=== PATIENT | male | born 1950 | race Caucasian/White ===

== ENCOUNTER 2016-09-17 18:58 | Emergency (ER) | payer MEDICARE ==
[2016-09-17] MEDS ORDERED: TUSSIONEX PENNKINETIC SUSP 5 ML UDC ONE (20:11)
[2016-09-17] MEDS ORDERED: OSELTAMIVIR PHOSPHATE 75 MG PO ONE (20:11)
--- NOTE | 2016-09-17 20:32 | ER NURSING DOCUMENTATION ---
Nurse's Notes [facility] Name:Wesley Ramirez Age:66 yrs Sex:Male :1950 Arrival Date:09/17/2016 Time:18:58 Bed4 Private MD:Elgin Arthur Diagnosis:Influenza Presentation: 09/17 19:15 Notified ED Physician of patient's arrival and CC. rs 19:16 Presenting complaint: Patient states: "Have the flu". Transition of care: patient was rs not received from another setting of care. 19:16 Acuity: JOEL 4 rs 19:16 Method Of Arrival: Private Vehicle rs Triage Assessment: 19:38 General: Appears in no apparent distress, comfortable, Behavior is cooperative, rs pleasant. Pain: Complains of pain in skin all over aches. Neuro: No deficits noted. Level of Consciousness is awake, alert, Oriented to person, place, time, event. Cardiovascular: No deficits noted. Capillary refill < 3 seconds Pulses are 3+ in right radial artery. Respiratory: Respiratory effort is even, unlabored, Respiratory pattern is regular, symmetrical, Breath sounds are clear bilaterally. Derm: No deficits noted. Skin is pink, warm & dry. Historical: - Allergies: PENICILLINS; Aspirin; Lamisil; many foods; - Home Meds: 1. Norvasc Oral 2. Coreg Oral 3. oxygen at noc 4. cpap 5. Shannen Oral 6. Flonase Nasal 7. levothyroxine oral 8. Lisinopril Oral 9. singular 10. Naprosyn Oral 11. Zantac Oral - PMHx: Hypertension; Diabetes - NIDDM; - Tetanus: < 10 years. - Ebola Screening: : Patient negative for fever greater than or equal to 101.5 degrees Fahrenheit, and additional compatible Ebola Virus Disease symptoms. Patient denies exposure to infectious person. Patient denies travel to an Ebola-affected area in the 21 days before illness onset. No symptoms or risks identified at this time. . - Immunization history: Pneumococcal vaccine is up to date, Flu Vaccine < 1 year. - Social history: Smoking status: Patient states was never smoker of tobacco. Patient/guardian denies using alcohol. Screenin:29 Infectious Disease Risk None. Abuse screen: Denies threats or abuse. Nutritional rs screening: No deficits noted. Assessment: 20:29 See Triage Assessment done by same RN. rs Vital Signs: 19:19 BP 174 / 83; Pulse 84; Resp 16; Temp 101.6; Pulse Ox 91% ; Weight 104.33 kg; Height 6 jt ft. 0 in. (182.88 cm); Pain 0/10; 19:19 Body Mass Index 31.19 (104.33 kg, 182.88 cm) jt ED Course: 18:59 Patient arrived in ED. jt 18:59 Elgin Arthur DO is Private Physician. jt 19:17 Triage completed. rs 19:20 Patient has correct armband on for positive identification. Placed in gown. Bed in low rs position. Call light in reach. Side rails up X 1. Adult w/ patient. Pulse Ox - RN Monitoring Only. Door closed. Noise minimized. 19:23 Yomi Johnson MD is Attending Physician. sc 19:39 Notified ED Physician. rs 20:08 Elgin Arthur DO is Referral Physician. sc Administered Medications: 20:04 Drug: Tamiflu 75 mg; Route: PO; sc 21:31 Follow up: Response: Dispensed at discharge. rs 20:04 Drug: Tussionex - HYDROcodone-Homatropine Liquid 5ml 5 ml; Route: PO; sc 21:30 Follow up: Response: Pharmacy closed - take home med pack; Dispensed at discharge. rs Outcome: 20:08 Discharge ordered by . sc 20:30 Discharged to home rs 20:30 Condition: stable 20:30 Discharge instructions given to patient, family, Instructed on discharge instructions, follow up and referral plans. medication usage, Demonstrated understanding of instructions, medications, Prescriptions given X 2. 20:31 Patient left the ED. rs Signatures: Ritu Plata RN RN rs Yomi Johnson MD MD al Vianey Velasquez
--- NOTE | 2016-09-17 20:32 | ER PHYSICIAN DOCUMENTATION ---
Physician Documentation [facility] Name:Wesley Ramirez Age:66 yrs Sex:Male :1950 Arrival Date:09/17/2016 Time:18:58 Bed4 Private MD:Elgin Arthur ED, Scott Disposition: 09/17/16 20:08 Discharged to Home/Self Care. Impression: Influenza. - Condition is Good. - Discharge Instructions: INFLUENZA (Adult). - Prescriptions for Tamiflu 75 mg Oral - take 1 capsule by ORAL route every 12 hours for 5 days; 20 capsule. Tussionex Pennkinetic ER 8- 10 mg/5 mL Oral Suspension, Sust. Release 12 hr - take 5 milliliter by ORAL route every 12 hours As needed; 120 milliliter. - Medical Reconciliation form form. - Follow up: Elgin Arthur DO; When: 2 - 3 days; Reason: Worsening of condition. - Problem is new. - Symptoms have improved. HPI: 09/17 20:04 This 66 yrs old Male presents to ER via Private Vehicle with complaints of sc Flu Symptoms. 20:04 The patient or guardian reports cough, that is intermittent. Onset: The sc symptom(s)/episode began/occurred yesterday. Severity of symptoms: At their worst the symptoms were moderate. Modifying factors: The symptoms are alleviated by Tylenol. Associated signs and symptoms: Pertinent positives: fever. Historical: - Allergies: PENICILLINS; Aspirin; Lamisil; many foods; - Home Meds: 1. Norvasc Oral 2. Coreg Oral 3. oxygen at noc 4. cpap 5. Shannen Oral 6. Flonase Nasal 7. levothyroxine oral 8. Lisinopril Oral 9. singular 10. Naprosyn Oral 11. Zantac Oral - PMHx: Hypertension; Diabetes - NIDDM; - Tetanus: < 10 years. - Ebola Screening: : Patient negative for fever greater than or equal to 101.5 degrees Fahrenheit, and additional compatible Ebola Virus Disease symptoms. Patient denies exposure to infectious person. Patient denies travel to an Ebola-affected area in the 21 days before illness onset. No symptoms or risks identified at this time. . - Immunization history: Pneumococcal vaccine is up to date, Flu Vaccine < 1 year. - Social history: Smoking status: Patient states was never smoker of tobacco. Patient/guardian denies using alcohol. ROS: 20:05 Eyes: Negative for injury, pain, redness, and discharge. sc ENT: Negative for injury, pain, and discharge. Neck: Negative for injury, pain, and swelling. Cardiovascular: Negative for chest pain, palpitations, and edema. Abdomen/GI: Negative for abdominal pain, nausea, vomiting, diarrhea, and constipation. Back: Negative for injury and pain. MS/Extremity: Negative for injury and deformity. Skin: Negative for injury, rash, and discoloration. 20:05 Neuro: Negative for headache, weakness, numbness, tingling, and seizure. sc 20:05 Constitutional: Positive for body aches, fever. 20:05 Respiratory: Positive for cough. Exam: Head/Face: Normocephalic, atraumatic. Eyes: Pupils equal round and reactive to light, extra-ocular motions intact. Lids and lashes normal. Conjunctiva and sclera are non-icteric and not injected. Cornea within normal limits. Periorbital areas with no swelling, redness, or edema. Neck: Trachea midline, no thyromegaly or masses palpated, and no cervical lymphadenopathy. Supple, full range of motion without nuchal rigidity, or vertebral point tenderness. No meningismus. Chest/axilla: Normal chest wall appearance and motion. Nontender with no deformity. No lesions are appreciated. Cardiovascular: Regular rate and rhythm with a normal S1 and S2. No gallops, murmurs, or rubs. Normal PMI, no JVD. No pulse deficits. Back: No spinal tenderness. No costovertebral tenderness. Full range of motion. Skin: Warm, dry with normal turgor. Normal color with no rashes, no lesions, and no evidence of cellulitis. MS/ Extremity: Pulses equal, no cyanosis. Neurovascular intact. Full, normal range of motion, negative Homans's, calves equal bilaterally. 20:05 Neuro: Awake and alert, GCS 15, oriented to person, place, time, and situation. ak Cranial nerves II-XII grossly intact. Motor strength 5/5 in all extremities. Sensory grossly intact. Cerebellar exam normal. Normal gait. 20:05 Constitutional: The patient appears alert, awake, febrile. 20:05 ENT: Nose: is normal, Posterior pharynx: is normal. 20:05 Respiratory: the patient does not display signs of respiratory distress, Respirations: normal, Breath sounds: are normal. 20:09 Neuro: Orientation: is normal. ak Vital Signs: 19:19 BP 174 / 83; Pulse 84; Resp 16; Temp 101.6; Pulse Ox 91% ; Weight 104.33 kg; Height 6 jt ft. 0 in. (182.88 cm); Pain 0/10; 19:19 Body Mass Index 31.19 (104.33 kg, 182.88 cm) jt MDM: 19:42 Patient medically screened. ak 20:08 Differential Diagnosis: Influenza Upper Respiratory Infection. Data reviewed: vital sc signs, nurses notes, and as a result, I will discharge patient. Counseling: I had a detailed discussion with the patient and/or guardian regarding: the historical points, exam findings, and any diagnostic results supporting the discharge/admit diagnosis, lab results, the need for outpatient follow up, to return to the emergency department if symptoms worsen or persist or if there are any questions or concerns that arise at home. Dispensed Medications: 20:04 Drug: Tamiflu 75 mg; Route: PO; sc 21:31 Follow up: Response: Dispensed at discharge. rs 20:04 Drug: Tussionex - HYDROcodone-Homatropine Liquid 5ml 5 ml; Route: PO; sc 21:30 Follow up: Response: Pharmacy closed - take home med pack; Dispensed at discharge. rs Signatures: Ritu Plata RN RN rs Yomi Johnson MD MD ak
== END 2016-09-17 20:31 | disposition home or self-care (01) ==
LOC: ER 18:58
DX: J11.1 Influenza due to unidentified influenza virus with other respiratory manifestations (principal); I10 Essential (primary) hypertension; E11.9 Type 2 diabetes mellitus without complications; Z79.899 Other long term (current) drug therapy
CPT/HCPCS: 87449; 99283